=== PATIENT | female | born 1990 | race Caucasian/White ===

== ENCOUNTER 2016-11-21 01:11 | Observation (INO) | payer OTHER ==
[~2016-11-21] VITALS: Ht 167.6 cm; Wt 132.4 kg
[2016-11-21] MEDS ORDERED: Lactated Ringer's 1,000 ML IV SCH ×2 (07:32→20:18)
[2016-11-21] MEDS ORDERED: Ampicillin Inj 2,000 MG in 0.9% Sodium Chloride 100 ML IV ONE (08:00)
--- NOTE | 2016-11-21 08:22 | PCM.HPOB ---
Subjective Date of Service: Nov 21, 2016 Referring Provider: Admitting Physician: James Garcias MD Primary Care Physician: [facility] Attending Physician: James Garcias MD Chief Complaint Induction of labor at 37 w 2 days for gestational hypertension with new onset headaches History of Present History of Present Illness Patient is a 26 y.o. F EGA 37 wk 2 days, history of gestational hypertension, GBS positive. Patient presents with worsening elevation in blood pressure and headaches. Patient denies rupture of membranes, vaginal discharge, vaginal bleeding, patient states that she is currently not having cramps. OB History: (1), Para (0) Past Medical History Obstetrical History: GBS postiive ASHLY 12/10/16 h/o gestational HTN during this Gynecologic History: No history of STI Last pap 05/10/16 negative HPV, negative abnormal cells Medical History: Rupture left gastrocnemius tendon Dental abscess Surgical History: none Hx Tobacco Use: No Smoking Status: Never Smoker Hx Alcohol Use: No Hx Substance Use: No Past Family History Family History Mother and father alive and well Mother history of pernicious anemia Sister with RA Living Arrangement: with Family Genetic Screening/Counseling Genetic Screening/Counseling: Negative Review of Systems Constitutional: Y: Change of appitite, Chills Eyes: Denies: Blurred Vision, Conjunctive Inflammation ENT: Denies: Ear Pain, Tinnitus Cardiovascular: Denies: Chest Pain, Edema, Orthopnea, Palpitations, SOB while laying flat Respiratory: Denies: Cough, Pleuritic Chest Pain Gastrointestinal: Denies: Abdominal Pain, Nausea, Vomiting Genitourinary: Denies: Dysuria Musculoskeletal: Denies: Swelling Neurological: Denies: Change in Speech, Confusion, Dizziness Medications Home medications Benadryl Tylenol vitamins Allergy Coded Allergies: No Known Allergies (Unverified , 06/17/15) Exam Vital Signs HR 89 BP 120/78 Exam Tracing showed reassuring tracing HR 130 Positive accelerations No decelerations Objective Holt score 2 Constitutional: Well-developed, Obese HEENT: Atraumatic, PERRLA, EOMI Lungs: Clear to Auscultation, Normal Air Movement Heart: Exam Unremarkable, Regular Rate/Rhythm, Normal S1, Normal S2 Abdomen: Gravid, No tenderness Extremities: Pulses Palpable x4, Edema (mild) Neurological/Psychiatric: Alert, Oriented X3, Cooperative, No Acute Distress Neuro: Grossly Neurologically Intact Labs/Diagnostics Labs Genetic screening negative GBS positive Blood type O positive Ultra Sound US 10/27 EFW 80% US 11/17 Normal BPP Normal placental flow Normal amniotic fluid level Maternal Blood Type: O (+) Hx Rho(D) Immune Globulin: No Group B Strep Results: Positive Rubella: Immune OB Intrapartum Assessment/Plan Assessment Patient is a 26 y.o. F EGA 37 wk and 2 days, history of gestational hypertension. Presents for induction due to elevated blood pressure and headaches Problems: (1) Gestational hypertension Qualifiers: Trimester: third trimester Qualified Code: O13.3 - Gestational [- induced] hypertension without significant proteinuria, third trimester Plan: See below Induction of labor for concern of development of pre-eclampsia with new onset headaches Status: Acute ICD Code: O13.9 (2) labor with delivery Status: Acute ICD Code: O60.10X0 Pain Evaluation: Adequate Pain Control Intrapartum plan Start induction of labor 25 mg Cytotec Q4 hours with cervical checks Continue [place] GBS positive start PCN IV 5000 units once and 3,000 units Q4 IVF LR 100 mls/hr Order CBC, CMP, UA Urine dip negative for protein Post plan: Continue routine post care Attending Statement The patient was seen and examined together with Dr. Romero I agree with the history, exam and plan as outlined in the note above. Will start induction of labor for elevated blood pressure. BP stable currently. Will start cervical ripening protocol with cytotec. GBS prophylaxis when pitocin started cc: Imani Montes MD, AARON J DO Nov 21, 2016 08:22 Imani Montes MD Nov 23, 2016 16:21
[2016-11-21] MEDS ORDERED: Penicillin G K Inj 5,000,000 UNITS in Dextrose 5% Minibag Plus 100 ML IV ONE ×2 (08:45→23:15)
[2016-11-21 08:48] LABS: APPEARANCE,URINE HAZY (CLEAR,HAZY); COLOR,URINE DARK YELLOW (YELLOW); OCCULT BLOOD,URINE NEGATIVE (NEGATIVE); PH,URINE 6.5 (5.0-8.0)
[2016-11-21 08:49] LABS: UROBILINOGEN,URINE NORMAL (NORMAL)
[2016-11-21] MEDS ORDERED: Oxytocin 30 Units/500 mL LR 30 UNITS in IV Premix 1 EACH IV PRN (09:15)
[2016-11-21] MEDS ORDERED: Methylergonovine 0.2 mg/mL Inj IM PRN (09:15)
[2016-11-21] MEDS ORDERED: Hemorrhage Kit, Post Partum XX ONE (09:15)
[2016-11-21] MEDS ORDERED: Ondansetron 2 mg/mL 2 mL Inj IVPUSH PRN (09:15)
[2016-11-21] MEDS ORDERED: Oxytocin 10 Unit/mL Inj IM PRN (09:15)
[2016-11-21] MEDS ORDERED: Carboprost 250 mCg/mL Inj IM PRN (09:15)
[2016-11-21] MEDS ORDERED: Sodium Chloride LOK Flush 10 mL Syringe IVFLUSH PRN (09:15)
[2016-11-21] MEDS: Lactated Ringer's 1,000 ML IV PRN ×3 (09:27→23:24)
[2016-11-21] MEDS: Misoprostol 25 mCg/0.25 Tablet VAGINAL SCH ×2 (09:29→13:30)
[2016-11-21 09:49] LABS: BASOPHILS % (AUTO) 0.2 % (0-3); MONOCYTES % (AUTO) 4.3 % (4-12); Mean Corpuscular Hemoglobin 26.6 pg (27.0-35.0); Mean Corpuscular Volume 79.1 fL (81-100); NEUTROPHILS % (AUTO) 79.1 % (40-74); Platelet Count 276 bil/L (150-400)
[2016-11-21] MEDS ORDERED: Penicillin G K Inj 3,000,000 UNITS in IV Premix 1 EACH IV SCH (13:00)
[2016-11-22] MEDS: Lactated Ringer's 1,000 ML IV PRN (02:00)
[2016-11-22] MEDS: Penicillin G K Inj 3,000,000 UNITS in IV Premix 1 EACH IV SCH ×2 (03:39→07:30)
[2016-11-22] MEDS: Misoprostol 25 mCg/0.25 Tablet VAGINAL SCH (08:52)
[2016-11-22] MEDS ORDERED: Misoprostol 25 mCg/0.25 Tablet VAGINAL SCH (09:15)
--- NOTE | 2016-11-22 18:24 | PCM.DIOB ---
Obstetrical Disch Instruction Dates of Hospitalization Date of Hospital Admission Nov 21, 2016 at 06:53 Providers Admitting Physician: James Garcias MD Primary Care Physician: [facility] Attending Physician: James Garcias MD Discharge Diagnosis Discharge Diagnosis Induced hypertension intrauterine gestation 37 weeks 3 days Problems: (1) Gestational hypertension Qualifiers: Trimester: third trimester Qualified Code: O13.3 - Gestational [- induced] hypertension without significant proteinuria, third trimester Status: Acute ICD Code: O13.9 Diet Discharge Diet: Low fat, Low Sodium, Heart Healthy Activity Discharge Activity-General: Try not to overdue, Balance rest and activity, Activity as pain allows Additional Instructions Discharge Instructions [facility] as scheduled tomorrow 11/23/16 Return to [facility] [place] for blood pressure check and NST Rescheduled induction due to failure to progress for Next Monday11/29/16 labor precautions: If you experience rupture of membranes (water breaking), increasing contractions in close proximity 8-10 minutes proceed to family center If you experience vaginal bleeding, fever, chills, worsening nausea, vomiting, intractable worsening headaches, changes in vision, proceed to [facility] [place]. Follow Up Plan Follow Up Plan Follow up with [facility] as scheduled tomorrow 11/23/16 Return to [facility] [place] for blood pressure check and NST Rescheduled induction due to failure to progress for Next Monday11/29/16 Follow-up appointment: Days (1), Weeks (1 wek scheduled induction) Call your provider for: Fever or Chills, Shortness of breath, Heavy vaginal bleeding, Heavy bleeding, Epigastric pain, Excessive constipation, Vaginal discomfort LAYLA MIR DO Nov 22, 2016 18:24
--- NOTE | 2016-11-22 18:31 | PCM.DC.OB ---
Obstetrical Discharge Summary Date of Service Nov 22, 2016 Date of hospital admission Nov 21, 2016 at 06:53 Date of Discharge: Nov 22, 2016 Providers Admitting Physician: James Garcias MD Primary Care Physician: [facility] Attending Physician: James Garcias MD Diagnosis at Time of Discharge induced Hypertension Single intrauterine gestation 37 wk 3 days Problems: (1) Gestational hypertension Qualifiers: Trimester: third trimester Qualified Code: O13.3 - Gestational [- induced] hypertension without significant proteinuria, third trimester Status: Acute ICD Code: O13.9 Brief History and Physical: Patient is a 26 y.o. F EGA 37 wk 2 days, history of gestational hypertension, GBS positive. Patient presents with worsening elevation in blood pressure and headaches. Patient stated she is not sleeping well in hospital and has not had regular contractions, patient stated that she has had intermittent strong contractions every few hours follow by sporadic moderate contractions. At time of discharge patient denies rupture of membranes, vaginal discharge, vaginal bleeding, fever, chills, headache, worsening vision. Labs reviewed normal no prolinuria. Exam Constitutional: Well-developed, Obese HEENT: Atraumatic, PERRLA, EOMI Lungs: Clear to Auscultation, Normal Air Movement Heart: Exam Unremarkable, Regular Rate/Rhythm, Normal S1, Normal S2 Abdomen: Gravid, No tenderness Extremities: Pulses Palpable x4, Edema (mild) Neurological/Psychiatric: Alert, Oriented X3, Cooperative, No Acute Distress Neuro: Grossly Neurologically Intact Hospital Course: Patient is a 26 y.o. F EGA 37 wk 2 days, history of gestational hypertension, GBS positive. Patient presented 11/21/16 for scheduled induction for induced hypertension with symptoms of worsening elevation in blood pressure and headaches. patient present with closed cervix, 0 % effacement -3 station. Induction initiated with cytotec 25 mg Q 4hrs. Overnight induction medication changed to cervadil with inaccurate placement. Aproximately 0900 11/22/16 medication changed back to cytotec after two doses patient progress to 1 cm dilation and 70 % effacement, no change in station, no regular contractions. During hospitals stay BP in good range 120- 130 / 60 - 70. Decision made to discharge patient with labor precations, follow up 11/23/16 in office, Bp check and NST 8/24/17, and reschedule induction for . Repeat Ultrasound with EFW ordered. No Active Prescriptions or Reported Meds Disposition Discharge to home Follow-up plan Follow Up Plan [facility] as scheduled tomorrow 11/23/16 Return to [facility] for blood pressure check and NST Rescheduled induction due to failure to progress for Next Monday11/29/16 Follow-up appointment: Days (1), Weeks (1 wek scheduled induction) Call your provider for: Fever or Chills, Shortness of breath, Heavy vaginal bleeding, Heavy bleeding, Epigastric pain, Excessive constipation, Vaginal discomfort Discharge Diet: Low fat, Low Sodium, Heart Healthy Discharge Activity-General: Try not to overdue, Balance rest and activity LAYLA MIR DO Nov 22, 2016 18:31
== END 2016-11-22 18:41 | disposition home or self-care (01) ==
LOC: INTOOBSV 06:53 → FBC 06:53
PROVIDERS: ADMIT Obstetrics & Gynecology; ATTEND Obstetrics & Gynecology
DX: O13.3 Gestational [pregnancy-induced] hypertension without significant proteinuria, third trimester (principal); O61.0 Failed medical induction of labor; R51 Headache; Z3A.37 37 weeks gestation of pregnancy; O99.824 Streptococcus B carrier state complicating childbirth
CPT/HCPCS: 36415; 80053; 81000; 82570; 84156; 85025; 86850; 87086; 87088; 96365; G0463; J2540; J7120

== ENCOUNTER 2016-11-29 01:55 | Inpatient (IN) | payer OTHER ==
[~2016-11-29] VITALS: Ht 167.6 cm; Wt 133.0 kg
[2016-11-29] MEDS ORDERED: Oxytocin 10 Unit/mL Inj IM PRN (08:45)
[2016-11-29] MEDS ORDERED: Carboprost 250 mCg/mL Inj IM PRN (08:45)
[2016-11-29] MEDS ORDERED: Hemorrhage Kit, Post Partum XX ONE (08:45)
[2016-11-29] MEDS ORDERED: Methylergonovine 0.2 mg/mL Inj IM PRN (08:45)
[2016-11-29] MEDS ORDERED: Oxytocin 30 Units/500 mL LR 30 UNITS in IV Premix 1 EACH IV PRN (08:45)
[2016-11-29 09:01] LABS: Mean Corpuscular Hemoglobin 26.6 pg (27.0-35.0); Mean Corpuscular Volume 79.1 fL (81-100)
--- NOTE | 2016-11-29 09:04 | PCM.HPOB ---
Subjective Date of Service: Nov 29, 2016 Referring Provider: Admitting Physician: James Garcias MD Primary Care Physician: [facility] Attending Physician: James Garcias MD Chief Complaint induction of labor History of Present History of Present Illness Patient is a 26 y.o. F G1 PO EGA 38 weeks 4 days, ASHLY, history of gestational hypertension, GBS postitive. Patient scheduled for induction 11/29/16 for induced hypertension. patient denies rupture of membranes, vaginal discharge, vaginal bleeding OB History: (1), Para (0) Obstetrical Complications: Gestational Hypertension Past Medical History Obstetrical History: GBS postivie ASHLY 12/10/16 Gestational HTN Gynecologic History: No h/o STI Lsat pap 05/10/16 neg HPV, negative cervical cancer Medical History: Rupture gastrocnemius tendon Dental abscess Surgical History: none Hx Tobacco Use: No Hx Alcohol Use: No Hx Substance Use: No Past Family History Family History Mother and father alive and well mother history of pernicious anemia Sister with RA Genetic Screening/Counseling Genetic Screening/Counseling: Negative Review of Systems Constitutional: Y: Change of appitite, Chills, Dizziness, Fever Eyes: Denies: Blurred Vision, Conjunctive Inflammation, Pain, Vision Changes ENT: Denies: Ear Pain, Nasal Congestion, Nose Discharge Cardiovascular: Denies: Chest Pain, Edema Respiratory: Denies: Cough, Cough with bloody sputum, Pleuritic Chest Pain Gastrointestinal: Denies: Abdominal Pain, Epigastric pain, Nausea, Vomiting Genitourinary: Denies: Change in Frequency, Dysuria, Hematuria, Incontinence Musculoskeletal: Denies: Redness Skin: Denies: Bruising, Jaundice, Rash Neurological: Denies: Change in Speech, Confusion, Dizziness Psychologic: Denies: Agitation, Anxious, Apprehensive, Depression Medications Home medications Benadryl Tylenol vitamins Allergy Coded Allergies: No Known Allergies (Unverified , 06/17/15) Exam Constitutional: Well-developed, Well-nourished, Obese HEENT: Atraumatic, PERRLA, EOMI Lungs: Clear to Auscultation, Clear to Percussion Heart: Regular Rate/Rhythm, Normal S1, Normal S2, No Murmurs/Rubs/Gallops Abdomen: Gravid (fundal height consistent with gestational age), Normal bowel sounds, No tenderness Extremities: Pulses Palpable x4, No Edema Neurological/Psychiatric: Alert, Oriented X3, Cooperative Neuro: Grossly Neurologically Intact Labs/Diagnostics Labs Genetic screening negative GBS postive Blood Type O Ultra Sound 11/17 Normal BPP Normal placental flow normal REMIGIO Maternal Blood Type: O Hx Rho(D) Immune Globulin: No Group B Strep Results: Positive Previous Infant with GBS: No Rubella: Immune Additional Information vaccinations up to date OB Intrapartum Assessment/Plan Assessment Patient is a 26 y.o. F EGA 38 wk 4 days. Admitted for induction of labor at 38 wk for PIH. V/s Pain Evaluation: Adequate Pain Control Intrapartum plan Admit to [facility] Order US to confirm position Once confirm vertex position start cervical ripening protocol with cytotec Start Tocometry IVF LR 125 mls/hr Tylenol for pain GBS positive start PCN IV 5000 units once and 3,000 units Q4 once pitocin started Order CBC, CMP, UA Attending Statement Patient seen and examined. Initially received cytotec at admission, currently cervix is 1/thick/high/soft. Vertex by bedside ultrasound. Spivey balloon placed at bedside for cervical ripening will start pitocin at 2mu and hold until balloon is out, then pitocin per protocol. PCN when in active labor. BP stable at this time 120-130's/70-80s LAYLA MIR DO Nov 29, 2016 09:04 Imani Montes MD Nov 29, 2016 16:17
[2016-11-29] MEDS: Misoprostol 25 mCg/0.25 Tablet VAGINAL SCH ×3 (10:05→17:45)
[2016-11-29] MEDS: Lactated Ringer's 1,000 ML IV PRN (16:34)
--- NOTE | 2016-11-29 16:59 | DRSVH ---
PROCEDURE: US OB AMNIOTIC FLUID INDEX/ POSITION LIMITED INDICATIONS: presentation OUTSIDE/PRIOR DATING DATA: Last menstrual period (LMP): 03/05/16. LMP-based estimated date of delivery (ASHLY): 12/10/16. First dating scan (date and location): 05/03/16. Estimated date of delivery (ASHLY) from first dating scan: 12/13/16. TECHNIQUE: Real-time scanning was performed of the fetus, with image documentation and biometric measurements. COMPARISON: [facility] Ultrasound, US, US OB FU GROWTH+BPP+UMB DOP, 11/24/2016, 11:08. FINDINGS: General: A single living intrauterine gestation is present. Presentation: Vertex Placenta: Placental position is anterior, without previa. OB-ALLERGY PHYSICIAN Ultrasound Procedure Report Summary Fetus Summary Est. Gest. Age by first dating scan(or LMP,if no prior): 38 weeks 0 days. Findings(Amniotic Sac) Amniotic Fluid Index (REMIGIO): 10.52 cm Pelvis and Uterus Cervix Length: Not well seen. IMPRESSION: 1. Single living intrauterine gestation redemonstrated in vertex presentation. No additional imaging of the fetus was performed. Dictated by: Luis Turcios RRA Interpreted: Elin Sheldon MD on 11/29/2016 at 10:21 Approved by: Elin Sheldon M.D. on 11/29/2016 at 16:57
[2016-11-30] MEDS: Lactated Ringer's 1,000 ML IV PRN (00:44)
[2016-11-30] MEDS: Oxytocin 30 Units/500 mL LR 30 UNITS in IV Premix 1 EACH IV PRN (05:21)
--- NOTE | 2016-11-30 07:07 | PCM.PNOBIP ---
Subjective Date of Service Nov 30, 2016 Visit History Patient is a 26 y.o. F G1 PO EGA 38 weeks 4 days, ASHLY, history of gestational hypertension, GBS postitive. Patient scheduled for induction 11/29/16 for induced hypertension. patient denies rupture of membranes, vaginal discharge, vaginal bleeding. Subjective Patient noted today that her mucus plug fell out last night when the cervical dilation balloon popped. Patient denies vaginal bleeding, rupture of membranes, fever, chills, vision changes. She noted nausea, vomiting x 1, headaches. Pain Management: PO pain meds Activity: Ambulating Independently Labs Labs Genetic screening negative GBS postive Blood Type O Ultra Sound 11/17 Normal BPP Normal placental flow normal REMIGIO Group B Strep Results: Positive Rubella: Immune Blood Type: O Labs Laboratory Tests 11/29/16 07:55: White Blood Count 10.9, Red Blood Count 4.88, Hemoglobin 13.0, Hematocrit 38.6, Mean Corpuscular Volume 79.1, Mean Corpuscular Hemoglobin 26.6, Mean Corpuscular Hemoglobin Concent 33.7, Red Cell Distribution Width 14.7, Platelet Count 268, Hematology Comments Exam Vital Signs Vital Signs Contraction frequency in minutes: MVUs: Heart Tracings Heart Tones Baseline bpm Tocometry/IUPC Contraction frequency in minutes: MVUs: Sterile Vaginal Exam Cervical Dilation: 1 cm Cervical Effacement: 30 % Station: -3 Exam Abdomen: Uterus is (gravid) Lungs: Clear to Auscultation, Clear to Percussion Heart: Regular Rate/Rhythm, Normal S1, Normal S2, No Murmurs/Rubs/Gallops General: Alert, Oriented X3, Cooperative OB Intrapartum Assessment/Plan Assessment Patient is a 26 y.o. F G1 PO EGA 38 weeks 4 days, ASHLY, history of gestational hypertension, GBS postitive. Admitted for induction of labor due to PIH . BP stable at this time 120-130's/70-80s, labs stable Plan US confirmed vertex position Continue ripening with cervical balloon and cytotec per per protocol, pitocin at 2mu and hold until balloon is out, then pitocin per protocol ContinueTocometry IVF LR 125 mls/hr Tylenol for pain GBS positive start PCN IV 5000 units once and 3,000 units Q4 once pitocin started Pain Evaluation: Adequate Pain Control Attending Statement Patient seen and examined. She is making slow cervical change. Overnight her temple balloon ruptured and she continues to be 1.5cm dilated. Soft, more effaced. Currently her gómez score is 5-6 which is a significant improvement from yesterday at admission her gómez score was 2. Options were reviewed today including proceeding with a primary section, continued induction with cervical ripening versus AROM and pitocin. After discussing risks/ benefits and alternatives of all of the options at this time she would like to proceed with a dose of cervidil with AROM and pitocin in the morning if no change. BP have been 120's-130's systolic throughout today. LAYLA MIR DO Nov 30, 2016 07:07 Imani Montes MD Nov 30, 2016 18:06
[2016-11-30] MEDS: Sodium Chloride LOK Flush 10 mL Syringe IVFLUSH PRN ×2 (07:23→16:18)
[2016-11-30] MEDS ORDERED: Misoprostol 25 mCg/0.25 Tablet VAGINAL ONE (08:30)
[2016-11-30] MEDS: Misoprostol 25 mCg/0.25 Tablet VAGINAL SCH ×3 (12:23→20:35)
[2016-11-30] MEDS ORDERED: Penicillin G K Inj 5,000,000 UNITS in Dextrose 5% Minibag Plus 100 ML IV SCH (21:20)
[2016-12-01] MEDS: Misoprostol 25 mCg/0.25 Tablet VAGINAL SCH ×6 (00:35→20:35)
[2016-12-01] MEDS ORDERED: Penicillin G K Inj 5,000,000 UNITS in Dextrose 5% Minibag Plus 100 ML IV SCH (00:45)
[2016-12-01] MEDS ORDERED: Oxytocin 30 Units/500 mL LR 30 UNITS in IV Premix 1 EACH IV PRN ×2 (07:15→21:55)
--- NOTE | 2016-12-01 07:15 | PCM.PNOBIP ---
Subjective Date of Service Dec 01, 2016 Subjective Doing well this AM. Toelrated cervidil overnight until it fell out at 3 AM. Last night we had a long discussion regarding management options, she was offered continued induction, proceeding with primary low transverse section, versus AROM and pitocin. After discussing with her partner and family she opted to proceed with cervidil overnight and then AROM this AM with pitocin. Pain Management: PO pain meds Activity: Ambulating Independently Group B Strep Results: Positive Rubella: Immune Blood Type: O Labs Laboratory Tests 11/29/16 07:55: White Blood Count 10.9, Red Blood Count 4.88, Hemoglobin 13.0, Hematocrit 38.6, Mean Corpuscular Volume 79.1, Mean Corpuscular Hemoglobin 26.6, Mean Corpuscular Hemoglobin Concent 33.7, Red Cell Distribution Width 14.7, Platelet Count 268, Hematology Comments Exam Vital Signs Vital Signs Contraction frequency in minutes: MVUs: Heart Tracings Heart Tones Baseline heart tones category 1 bpm Tocometry/IUPC Contraction frequency in minutes: MVUs: Sterile Vaginal Exam AROM performed at bedside, attempted IUPC placement- patient did not tolerate Cervical Dilation: 1 cm Cervical Effacement: 60 % Station: -3 Exam Abdomen: Uterus is (gravid) General: Alert, Oriented X3, Cooperative OB Intrapartum Assessment/Plan Assessment 26 yo female here for IOL for gestational hypertension. BP are stable 120-140' s systolic/ 70-80's diastolic. - IOL: status post temple balloon, cytotec, cervidil- Holt score 6, - AROM completed with pitocin started per protocol - PCN for GBS + status ordered - Epidural when desired Pain Evaluation: Adequate Pain Control Intrapartum Antibiotics: Imani Valiente MD Dec 01, 2016 07:15
[2016-12-01] MEDS: Oxytocin 30 Units/500 mL LR 30 UNITS in IV Premix 1 EACH IV PRN (07:37)
[2016-12-01] MEDS: Lactated Ringer's 1,000 ML IV PRN ×3 (07:38→13:47)
[2016-12-01] MEDS ORDERED: fentaNYL-PF 50 mCg/mL 2 mL Inj ONE ×2 (11:12→19:49)
[2016-12-01] MEDS ORDERED: fentaNYL-PF 50 mCg/mL 2 mL Inj IVPUSH ONE (11:20)
[2016-12-01] MEDS: Penicillin G K Inj 3,000,000 UNITS in IV Premix 1 EACH IV SCH ×4 (11:27→22:30)
[2016-12-01] MEDS ORDERED: fentaNYL 2 mCg/mL-Bupivicaine 0.125% 100 mL Premix EPIDURAL ONE (12:42)
[2016-12-01] MEDS ORDERED: Lactated Ringer's 500 ML IV ONE (13:43)
[2016-12-01] MEDS ORDERED: fentaNYL 2 mCg/mL-Bupiv 0.125% 100 ML EPIDURAL SCH (13:45)
[2016-12-01] MEDS ORDERED: EPHEDrine Sulfate 50 mg/mL Inj IVPUSH PRN (13:45)
[2016-12-01] MEDS ORDERED: Atropine 1 mg/10 mL (Code) Syringe IVPUSH PRN (13:45)
[2016-12-01] MEDS ORDERED: Ondansetron 2 mg/mL 2 mL Inj IVPUSH PRN (13:45)
--- NOTE | 2016-12-01 13:46 | PCM.HPANE ---
Patient Data Date of Service: Dec 01, 2016 Surgeon Admitting Provider:James Garcias MD Attending Provider:James Garcias MD Primary Care Physician:[facility] Other Provider:Vadim Maynard Anesthesia Reason for Visit Induction INDUCTION Ht/WT & BMI Body Mass Index Allergies Coded Allergies: No Known Allergies (Unverified , 06/17/15) Past Anesthesia History Anesthesia History: Denies:: Abnormal Airway, Anesthesia Reactions, Difficult Intubation, Fam Anesthesia Reaction, Fam Malignant Hypertherm, Malignant Hyperthermia Diabetes History Hx Diabetes?: No Medications Hypertension Medication: No Home Meds Incl Beta Daniel: No No Active Prescriptions or Reported Meds History History of ENT Problems?: No HEENT History: Denies:: Abnormal Airway Cataracts Difficult Intubation Dysphagia Glaucoma Hearing Problem Sinus Problem TMJ Denture Type: None Teeth Condition: Within Normal Limits Hx of Heart Problems?: No Cardiovascular History: Denies:: AICD Abdominal Aortic Aneurism Atrial Fibrillation Cardiac Surgery Chest Pain Congestive Heart Failure Coronary Artery Disease Edema Heart Murmur Hypertension Irregular Heartbeat Pacemaker Peripheral Vascular Rheumatic Fever Thrombophlebitis Valvular Heart Disease Hx of Respiratory Problem?: No Respiratory History: Denies:: Asthma COPD Chest Surgery Cough Dyspnea Emphysema Hemoptysis Oxygen Administration Pneumonia Pulmonary Embolism Tuberculosis Use of C-PAP Machine Use of Inhalers / NEBS Hx Neurologic Problems?: No Neurological History: Denies:: Alzheimer's Disease CVA Dementia Dizziness Headaches Multiple Sclerosis Parkinson's Disease Peripheral Neuropathy Seizures TIA Hx of GI Problems?: No Gastrointestinal History: Denies:: Cirrhosis Diverticulitis Gall Bladder Disease Gastroesphageal Reflux Gastrointestinal Bleeding Heartburn Hepatitis Hiatal Hernia Liver Disease Rectal Bleeding Hx of Problems?: No Genitourinary History: Denies:: HX of Hemodialysis Kidney Stones Urinary Tract Infection Hx Musculoskeletal Problems?: No Musculoskeletal History: Denies:: Back Injury Degenerative Joint Fibromyalgia Joint Replacement Musculoskeletal Trauma Myasthenia Gravis Osteoarthritis Rheumatoid Arthritis Systemic Lupus Hx Surgeries?: No Hx Alcohol Use: NoHx Substance Use: No Smoking Status: Never Smoker Stop/Bang Risk Assessment Category Category 1A: Patient has history of documented sleep apnea, and HAS NOT received any narcotic, sedative or anesthesia administration during this stay. Category 1B: Patient has history of documented sleep apnea, and HAS received any narcotic , sedative or anesthesia administration during this stay Category 2: Patient has SUSPECTED Obstructive Sleep Apnea, and HAS received any narcotic , sedative or anesthesia administration during this stay. Category 3: Patient has SUSPECTED Obstructive Sleep Apnea and HAS NOT received narcotic, sedative or anesthesia administration during this stay. Category 4: Outpatient in Procedural Areas with known sleep apnea or who screen positive for High Risk via the STOP/BANG questionnaire. Exam Exam General Appearance: Alert, Oriented X3, Cooperative HEENT/AIRWAY: MP 2 Lungs: Clear to Auscultation, Normal Air Movement Heart: Exam Unremarkable, Regular Rate/Rhythm, No Murmurs/Rubs/Gallops Meds/Labs/Diagnostics Admission Meds Current Medications Dinoprostone 10 mg 10 mg ONCE ONCE VAGINAL Last administered on 11/30/16 18: 25; Start 11/30/16 at 17:45; Stop 11/30/16 at 17:48; Status DC Penicillin G Potassium/ Dextrose/Premix (Pfizerpen Inj/ IV Premix) 50 ml @ 100 mls/hr Q4H IV Last administered on 12/01/16 11:27; Start 12/01/16 at 10:30 Fentanyl Citrate (Sublimaze Inj) 50 mcg ONCE ONCE IVPUSH Last administered on 12/01/16 11:22; Start 12/01/16 at 11:20; Stop 12/01/16 at 11:21; Status DC Labs Test 11/29/16 07:55 11/29/16 08:05 White Blood Count 10.9th/mm3 (3.8-10.1) Red Blood Count 4.88mil/mm3 (3.90-5.20) Hemoglobin 13.0g/dL (12.0-15.6) Hematocrit 38.6% (35.0-46.0) Mean Corpuscular Volume 79.1fL (81-100) Mean Corpuscular Hemoglobin 26.6pg (27.0-35.0) Mean Corpuscular Hemoglobin Concent 33.7% (32.0-37.0) Red Cell Distribution Width 14.7% (12.3-15.4) Platelet Count 268bil/L (150-400) Hematology Comments Urine Random Creatinine 71mg/dL (16-392) Urine Random Total Protein 7mg/dL (0-15) Urine Protein/Creatinine Ratio 0.10 (0-200) Blood Urea Nitrogen 7mg/dL (6-20) Creatinine 0.57mg/dL (0.57-1.00) Uric Acid 5.2mg/dL (2.6-7.2) Aspartate Amino Transf (AST/SGOT) 20U/L (0-50) Alanine Aminotransferase (ALT/SGPT) 17U/L (0-32) Hold Urine Received (Received) Plan Impression Patient chart reviewed, patient interviewed and anesthestic plan with risks, benefits, and alternatives discussed, and informed consent obtained. ASA Physical Status: ASA2 Mod Systemic Disease Anesthetic Plan: Epidural Bene/Risks/Altern/Consents: Yes HP Complete Prior to Induction: Yes Juan Jessica MD Dec 01, 2016 13:46
[2016-12-01] MEDS: Lactated Ringer's 1,000 ML IV SCH ×2 (16:11→21:52)
[2016-12-01] MEDS ORDERED: Sodium Citrate-Citric Acid 15 mL Solution ONE (19:06)
[2016-12-01] MEDS ORDERED: Methylergonovine 0.2 mg/mL Inj IM PRN ×2 (19:10→21:55)
[2016-12-01] MEDS ORDERED: Carboprost 250 mCg/mL Inj IM PRN ×2 (19:10→21:55)
[2016-12-01] MEDS ORDERED: Oxytocin 10 Unit/mL Inj IM PRN ×2 (19:10→21:55)
[2016-12-01] MEDS ORDERED: Sodium Citrate-Citric Acid 15 mL Solution PO SCH (19:10)
[2016-12-01] MEDS ORDERED: Lactated Ringer's 1,000 ML IV SCH (19:10)
[2016-12-01] MEDS ORDERED: Hemorrhage Kit, Post Partum XX ONE ×2 (19:10→21:55)
[2016-12-01] MEDS ORDERED: CeFAZolin Inj 3 GM in IV Premix 1 EACH IV ONE (19:20)
[2016-12-01] MEDS ORDERED: Morphine PF 1 mg/mL 10 mL Inj ONE (19:49)
[2016-12-01] MEDS ORDERED: Ketamine 10 mg/mL 20 mL Inj ONE (19:50)
[2016-12-01] MEDS ORDERED: Dexamethasone 4 mg/mL Inj IVPUSH PRN (21:00)
[2016-12-01] MEDS ORDERED: fentaNYL-PF 50 mCg/mL 2 mL Inj IVPUSH PRN (21:00)
[2016-12-01] MEDS ORDERED: MetoCLOpramide 5 mg/mL 2 mL Inj IVPUSH PRN (21:00)
--- NOTE | 2016-12-01 21:54 | PCM.ANEP1 ---
Post Anesthesia PACU Phase 1 Assessment Anesthetic Administered: Epidural Level of Alertness: Awake, talking CORDOVA's with Equal Strength: No Pain: No Pain Scale Score: 0 Nausea or Vomiting: No CV Function & Hydration Stable: No Airway Device: Oxygen Delivery: Room Air Lungs: Clear to Auscultation, Normal Air Movement Dermatome Level: T12 (Symphysis Pubis) PACU Phase 2 Assessment Complications: No Follow up Care: No Patient Instructions Provided: Yes Juan Jessica MD Dec 01, 2016 21:54
[2016-12-01] MEDS ORDERED: Acetaminophen IV 1,000 MG in IV Premix 1 EACH IV PRN (21:55)
[2016-12-01] MEDS ORDERED: Sodium Chloride LOK Flush 10 mL Syringe IVFLUSH PRN (21:55)
[2016-12-01] MEDS ORDERED: LANOlin HPA 7 Gm Ointment TOPICAL PRN (21:55)
[2016-12-01] MEDS ORDERED: DEXTROSE 5% IV ONE (23:05)
[2016-12-01] MEDS ORDERED: GENTAMICIN IV ONE (23:05)
[2016-12-01] MEDS: diphenhydrAMINE 50 mg Capsule PO PRN (23:08)
--- NOTE | 2016-12-01 23:28 | OP ---
[address] [address] OPERATIVE REPORT PATIENT: ALEXSANDRA HERNANDES : 1990 MR#: [id number] ADMIT: 11/29/2016 JOB ID: [id number] DATE OF SURGERY: 12/01/2016 PREOPERATIVE DIAGNOSIS(ES): 1. A 26-year-old, 1, para 0, at 38 weeks and 5 days gestational age admitted by Dr. Montes for induction of labor secondary to gestational hypertension. Had been induced for three days, progressed to fully dilated and started pushing. Arrest of descent at -3 station continued for 2 hours in spite of adequate pushing and adequate uterine contractions. 2. Category 2 heart tracing with repetitive variable decelerations was observed. Baseline of 145 beats per minute, positive accelerations with moderate variability. Repetitive variable decels . A nicholas of 80 beats per minute, back to the baseline. When pushing stopped and the Pitocin stopped, category 1 tracing was restored. Patient consented to proceed with a primary section. POSTOPERATIVE DIAGNOSIS(ES): 1. A 26-year-old, 1, para 0, at 38 weeks and 5 days gestational age admitted by Dr. Montes for induction of labor secondary to gestational hypertension. Had been induced for three days, progressed to fully dilated and started pushing. Arrest of descent at -3 station continued for 2 hours in spite of adequate pushing and adequate uterine contractions. 2. Category 2 heart tracing with repetitive variable decelerations was observed. Baseline of 145 beats per minute, positive accelerations with moderate variability. Repetitive variable decels . A nicholas of 80 beats per minute, back to the baseline. When pushing stopped and the Pitocin stopped, category 1 tracing was restored. Patient consented to proceed with a primary section. SURGEON: Shilpa Richardson M.D. GROUNDS AND NURSERY SPECIALIST: Kuldip Lu MD PROCEDURE: Primary low transverse section. INTRAVENOUS FLUIDS: 800 cc of crystalloid. ESTIMATED BLOOD LOSS: 600 cc. COMPLICATIONS: None. PACKS: None. DRAINS: None. CATHETERS: Spivey catheter in place. ANESTHESIA: Epidural. SPECIMEN: Removed placenta and sent to Pathology for gestational hypertension. OPERATIVE FINDINGS: 1. Normal fallopian tubes and ovaries bilaterally. 2. Right occiput transverse position with kaput succedaneum. 3. Single viable female infant, Apgars of 10/10 and weight of 3934 g. PROCEDURE IN DETAIL: Risks, benefits and alternatives were discussed with the patient. Informed consent was signed. Patient moved to the OR with IV running. After epidural anesthesia was found to be adequate, the patient was placed in dorsal supine position with a leftward tilt, prepped and draped in normal sterile fashion. inserted to retract the abdominal pannus and skin incision was made with a scalpel 2 cm above the symphysis pubis and carried down to the rectus fascia with the scalpel. Fascial incision extended bilaterally with Arrington scissors. Inferior aspect of fascial incision grasped with Ace clamps. It was tented up and rectus muscles dissected off bluntly. Attention was then turned to the superior aspect of the fascial incision, which in a similar fashion, was grasped with Ace clamps, tented up and rectus muscles dissected off bluntly. Rectus muscles were then in the midline. Peritoneum identified, entered bluntly with traction counter-traction. Upon good visualization of the bladder, the peritoneal incision extended superiorly and inferiorly. The Moebius retractor was inserted in the abdomen and bladder blade inserted. The vesicouterine peritoneum identified, entered sharply with the Metzenbaum scissors. Bladder flap created digitally. Bladder blade reinserted. Uterus incised in midline with scalpel. Uterine incision extended bilaterally with bandage scissors. The had delivered in right occiput transverse position with kaput succedaneum. Delayed cord clamping allowed for 60 seconds. Infant handed off to waiting scouring train operator after cord clamped and cut. Placenta expressed manually. Uterus exteriorized and cleared of all clots and debris. The uterine incision repaired with two layers, 1st of locked fashion of 0-Vicryl suture, 2nd layer of imbrication with 0-Vicryl suture. Extra [id number] of 2-0 chromic were taken to assure hemostasis at the level of hysterotomy repair. Suction irrigation confirmed hemostasis. Uterus returned back to the abdomen after observing normal fallopian tubes and ovaries bilaterally. All instruments removed from the patient's abdomen. Muscles approximated in the midline with interrupted sutures of 2-0 chromic. The fascia closed in a continuous fashion of 0-Vicryl suture. Subcutaneous layer closed in interrupted sutures of 2-0 chromic. Skin closed with yaritza. Pressure dressing applied. Patient tolerated the procedure well. Sponge, lap, needle, instrument counts correct x2. The patient went to Recovery in stable condition. Dr. Richardson was present and scrubbed for the entire procedure.
[2016-12-02] MEDS: Misoprostol 25 mCg/0.25 Tablet VAGINAL SCH ×7 (00:35→22:24)
[2016-12-02] MEDS: Clindamycin 900 mg/50 mL D5W IV SCH ×5 (01:07→22:25)
[2016-12-02] MEDS: Lactated Ringer's 1,000 ML IV SCH ×7 (01:08→22:24)
[2016-12-02] MEDS: Penicillin G K Inj 3,000,000 UNITS in IV Premix 1 EACH IV SCH ×8 (02:30→22:25)
[2016-12-02] MEDS: diphenhydrAMINE 50 mg Capsule PO PRN (03:25)
[2016-12-02 06:08] LABS: Mean Corpuscular Hemoglobin 26.5 pg (27.0-35.0); Mean Corpuscular Volume 80.6 fL (81-100)
[2016-12-02] MEDS: Ascorbic Acid 500 mg Tablet PO SCH (08:27)
--- NOTE | 2016-12-02 08:38 | PCM.PNOBPP ---
Subjective Date of Service Dec 02, 2016 Post : Primary Ceserean Delivery Visit History Patient is a 26 y.o. F G1 PO EGA 38 weeks 4 days, ASHLY, history of gestational hypertension, GBS postitive. Patient scheduled for induction 11/29/16 for induced hypertension, slow progression over first day of admission minimal change 1.5 cm 70% effacement. Decision made to start cervidil overnight. 11/30/16 Toelrated cervidil overnight until it fell out at 3 AM. Night of 11/30/16 we had a long discussion regarding management options, she was offered continued induction, proceeding with primary low transverse section, versus AROM and pitocin. After discussing with her partner and family she opted to proceed with cervidil overnight and then AROM 8 AM with pitocin. Patient progressed to full dialtion with 80% effacement station -3 at 1700 12/01/16. Patient did trial of pushing with minimal price changer the next three hours, with arrest of labor at -3 station, with category 2 FH tracing. Pitocin stopped and decision made to deliver via primary cesarians section delivered living female 10/10 weight 3934. No complications noted post delivery. Placenta sent for pathology for PIH. Subjective Today patient is doing well, pain uncontrol with hydrocodone and ibuprofen, light lochia, incision healing, passing gas. Pain Management: PO pain meds Postop Activity: Ambulating Independently Labs Labs Genetic screening negative GBS postive Blood Type O Ultra Sound 11/17 Normal BPP Normal placental flow normal REMIGIO Maternal Blood Type: O Hx Rho(D) Immune Globulin: No Group B Strep Results: Positive Previous Infant with GBS: No Rubella: Immune Group B Strep Results: Positive Rubella: Immune Blood Type: O RH Type: Positive Labs Laboratory Tests 11/29/16 07:55: Hematology Comments 12/02/16 05:45: White Blood Count 17.7, Red Blood Count 3.81, Hemoglobin 10.1, Hematocrit 30.7, Mean Corpuscular Volume 80.6, Mean Corpuscular Hemoglobin 26.5, Mean Corpuscular Hemoglobin Concent 32.9, Red Cell Distribution Width 14.5, Platelet Count 254 Exam Vital Signs Vital Signs: VS reviewed, stable Exam Abdomen: Uterus is, Fundus firm Perineum: Intact : Voiding without difficulty Extremities: No cords, Normal pulses Lungs: Clear to Auscultation, Normal Air Movement Heart: Regular Rate/Rhythm, Normal S1 General: Alert, Oriented X3 Surgical Wound : Incision General Appearence: Wound under dressing Dressing & Drainage Status: No Odor, Foul Odor Noted OB Post Assessment/Plan Pain Evaluation: Adequate Pain Control Post plan: Continue routine post care Plan: Hydrocodone 5-325 Q6 for pain Ibuprofen 600 mg Q6 for pain LAYLA MIR DO Dec 02, 2016 08:38
[2016-12-02] MEDS: oxyCODONE-Acetamin 5-325 mg Tablet PO PRN ×2 (15:00→20:43)
[2016-12-03] MEDS: oxyCODONE-Acetamin 5-325 mg Tablet PO PRN ×2 (03:00→08:40)
[2016-12-03] MEDS: Ascorbic Acid 500 mg Tablet PO SCH (08:40)
--- NOTE | 2016-12-03 10:11 | PCM.DIOB ---
Obstetrical Disch Instruction Date of Service: Dec 03, 2016 Dates of Hospitalization Date of Hospital Admission Nov 29, 2016 at 07:01 Providers Admitting Physician: James Garcias MD Primary Care Physician: Marcial Gr-Deny Waller Attending Physician: James Garcias MD Discharge Diagnosis Discharge Diagnosis Primary c/section for fail to descent POD2 preeclampsia without severe feature. Post Operative diagnosis Primary c/section for fail to descent POD2 preeclampsia without severe feature. Problems: Diet Discharge Diet: No restrictions Activity Discharge Activity-General: Pelvic Rest for 6 weeks, Try not to overdue, Be up and about, Balance rest and activity, Activity as pain allows, No lifting >15 pounds for 2 weeks Dressing and Incisional Care Dressing Care: Other (follow up in 2 days for yaritza removal) Hygiene: May shower, NO bathtub, hot tub or whirlpool Additional Instructions Discharge Instructions come back in 2 days for yaritza removal Please call office or go to ER if heavy vaginal bleeding, severe abdominal pain , fever more than 100,4, short of breath, or severe headache, blurry vision or floatus before your eyes. Follow Up Plan Follow Up Plan 2 and 6 weeks after delivery in office follow up in 2 days at [facility] for yaritza removal Follow-up appointment: Weeks (2 and 6 weeks) Call your provider for: Fever or Chills, Heavy vaginal bleeding, Heavy bleeding , Epigastric pain, Excessive constipation, Vaginal discomfort, Red painful breasts Tasneem Lancaster MD Dec 03, 2016 10:11
[2016-12-03] MEDS ORDERED: OXYC1TAB24 PO (10:13)
[2016-12-03] MEDS ORDERED: IBUP-1827 PO (10:13)
[2016-12-03] MEDS ORDERED: DOCU-41 PO (10:13)
[2016-12-03] MEDS ORDERED: FERR-74 PO (10:13)
--- NOTE | 2016-12-03 10:22 | PCM.DC.OB ---
Obstetrical Discharge Summary Date of Service Dec 03, 2016 Date of hospital admission Nov 29, 2016 at 07:01 Date of Discharge: Dec 03, 2016 Providers Admitting Physician: James Garcias MD Primary Care Physician: [facility] Simón-Felix Deny Bowles Attending Physician: James Garcias MD Diagnosis at Time of Discharge Primary c/section for fail to descent POD2 preeclampsia without severe feature. Problems: Brief History and Physical: Patient is a 26 y.o. F G1 PO EGA 38 weeks 4 days, ASHLY, history of gestational hypertension, GBS postitive. Patient scheduled for induction 11/29/16 for induced hypertension. patient denies rupture of membranes, vaginal discharge, vaginal bleeding Hospital Course: Admitted for IOL for preeclampsia without severe feature. Primacy c/section for fail to descent. Recovered well after delivery. BP in normal range. No s/s of preeclampsia Plan to discharge Docusate Sodium (Colace) 100 Mg Capsule 100 MG PO BID Prescribed by: TASNEEM ABDI MD Ferrous Sulfate (Feosol) 325 Mg Tablet 325 MG PO BIDWM Prescribed by: TASNEEM ABDI MD Ibuprofen (Ibuprofen) 600 Mg Tablet 600 MG PO QID PRN PRN For Pain Prescribed by: TASNEEM ABDI MD oxyCODONE-Acetaminophen 5-325 mg (oxyCODONE-Acetaminophen 5-325 mg) 1 Each Tablet 1-2 TAB PO Q8H PRN PRN For Pain Prescribed by: TASNEEM ABDI MD Discharge Medications: ferrous sulfate 325mg bid colace 100g bid prn motrin 600mg qid prn percocet 1-2 pills tid prn Disposition home Follow-up plan 2 and 6 weeks after delivery Discharge Diet: No restrictions Discharge Activity-General: Pelvic Rest for 6 weeks, Try not to overdue, Be up and about, Balance rest and activity Patient instructions Call office or go to ER if heavy vaginal bleeding, severe abdominal pain, foul smelling discharge, fever more than 100.4 or short of breath, or severe headache , blurry vision, epigastric pain. Tasneem Abdi MD Dec 03, 2016 10:22
[2016-12-03 11:20] VITALS: BP 110/70; PULSE 100; RESP 20
--- NOTE | 2016-12-12 15:04 | PATH ---
SURGICAL PATHOLOGY Attending Physician:James Garcias, CASE STATUS: Signed Out PATIENT NAME: ALEXSANDRA HERNANDES PID: [id number] : 1990 DATE COLLECTED:12/01/2016 00:00 SPECIMEN: Placenta CLINICAL HISTORY: 1). PLACENTA FOR HYPERTENSION FINAL DIAGNOSIS: Placenta, Delivery: membranes with deciduitis. Three vessel umbilical cord negative for funisitis. Placental disc (533 grams) with chorionic villi appropriate for gestational age. Features of decidual vasculopathy not identified. ICD10: Z38.01 GROSS DESCRIPTION: The specimen is received in formalin, labeled with the patient's name, and consists of an intact placenta which includes the placental disc (533 g, 20.5 x 16.5 x 2.9 cm), membranes and umbilical cord (length-19.2 cm, diameter-1.4 x 1.2 cm). The membranes are ruptured 4.0 cm from the free edge of the placenta and are thin and translucent. The umbilical cord is attached 6.8 cm from the edge of the placenta and contains 3 vessels. The surface is smooth and shiny with no evidence of meconium identified. The maternal surface is dark maroon with normal cotyledon formation. The placental body is spongy with no nodules, masses, lesions, hematomas or infarcts identified. Section code: (A) edge of placenta with membranes, umbilical cord; (B-G) placenta, 3 bisected full-thickness sections. 12/07/16 ICD-9 CODES: CPT CODES: 1: 00516 Electronically Signed Out Antwon Hooper MD, Ph.D. [facility] Pathology [facility] [address], [place] [address] Technical component performed at [facility], [address] [place] [address] Ave[address], [place], [address]
== END 2016-12-03 12:11 | disposition home or self-care (01) | DRG 766 ==
LOC: FBC 07:01
PROVIDERS: ADMIT Obstetrics & Gynecology; ATTEND Obstetrics & Gynecology
PROC: 10H07YZ Insertion of Other Device into Products of Conception, Via Natural or Artificial Opening (ICD-10-PCS; 2016-11-30)
PROC: 10907ZC Drainage of Amniotic Fluid, Therapeutic from Products of Conception, Via Natural or Artificial Opening (ICD-10-PCS; 2016-11-30)
PROC: 3E033VJ Introduction of Other Hormone into Peripheral Vein, Percutaneous Approach (ICD-10-PCS; 2016-11-30)
PROC: 10D00Z1 Extraction of Products of Conception, Low, Open Approach (ICD-10-PCS; principal; 2016-12-01 20:03)
DX: O13.4 Gestational [pregnancy-induced] hypertension without significant proteinuria, complicating childbirth (principal); O99.824 Streptococcus B carrier state complicating childbirth; O32.4XX0 Maternal care for high head at term, not applicable or unspecified; O14.94 Unspecified pre-eclampsia, complicating childbirth; O76 Abnormality in fetal heart rate and rhythm complicating labor and delivery; Z3A.38 38 weeks gestation of pregnancy; Z37.0 Single live birth

== ENCOUNTER 2016-12-03 23:33 | Emergency (ER) | payer OTHER ==
[~2016-12-03] VITALS: Ht 167.6 cm; Wt 127.7 kg
[~2016-12-03 23:33] MED LIST: DOCU-41 PO; FERR-74 PO; IBUP-1827 PO; OXYC1TAB24 PO
[2016-12-03 23:38] VITALS: BP 132/87; PULSE 101; RESP 18; O2SAT 99
--- NOTE | 2016-12-03 23:44 | ED.REPORT ---
HPI-General Illness Date of Service Dec 03, 2016 ED Provider: Tone Anne DO Pt is a 26 year old female with a history of recent (12/01/16) who presents to the ED complaining of SOB onset 2 days ago. She c/o associated post- surgical pain. She denies nausea, vomiting, diarrhea, cold symptoms, flu symptoms, and any other symptoms. Pt reports difficulty breathing when walking, and that her symptoms are relieved at rest. She states that she called her PCP and she was referred to the ED for further evaluation. 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 Complaint: Respiratory Complaints Nursing Notes Reviewed: Yes Allergies: Coded Allergies: No Known Allergies (Unverified , 06/17/15) Scheduled Docusate Sodium (Colace) 100 Mg Capsule 100 MG PO BID Ferrous Sulfate (Feosol) 325 Mg Tablet 325 MG PO BIDWM Scheduled PRN Ibuprofen (Ibuprofen) 600 Mg Tablet 600 MG PO QID PRN PRN For Pain oxyCODONE-Acetaminophen 5-325 mg (oxyCODONE-Acetaminophen 5-325 mg) 1 Each Tablet 1-2 TAB PO Q8H PRN PRN For Pain General Time Seen by MD: 23:44 Chief Complaint Other (Shortness of breath) Hx Obtained From: Patient Arrived By: Walk-in Sudden in Onset?: No Onset Occurred: 2 days ago Symptom Duration: Since onset Location: : Abdomen Quality: Painful Radiation: : Does not radiate Severity: Current: Moderate Severity: Maximum: Moderate Recent Healthcare: Recent doctor visit Similar Sx Previous: No Past Medical History Past Medical History none reported Past Surgical History Reports: Smoking History Never Smoker Social History none reported Alcohol Use: Denies alcohol use Drug Use: Denies drug use Other Social History: Good social support, Lives with children Ambulatory Status Independent Review of Systems Full Review of Systems Constitutional: Denies: Chills, Fever Respiratory: Reports: Dyspnea on exertion, Shortness of breath, Denies: Non-productive cough GI: Reports: Abdominal pain, Denies: Diarrhea, Nausea, Vomiting Allergy / Immune: Denies: Rhinorrhea Complete sys rev & neg: except as marked. Physical Exam Vital Signs Vital Signs Date Time Temp Pulse Resp B/P Pulse Ox O2 Delivery O2 Flow Rate FiO2 12/03/16 23:38 37.2 101 18 132/87 99 Room Air Initial VS: Reviewed Head / Eyes: Atraumatic, Normocephalic Neck: Supple, Full range of motion Cardiovascular: Regular rate & rhythm, Heart sounds normal, Intact distal pulses Extremities: Vascular intact, Neuro intact Skin: Warm, Dry, No cyanosis Neurologic: Alert, Oriented, Nonfocal Psychiatric: Mood/affect normal, Behavior normal General/Constitutional: Awake, Alert Respiratory / Chest: Atraumatic, Breath sounds = bilat Mildly dypsneic Abdomen: Soft Her wound looks good Interpretation & Diagnostics CT ANGIOGRAM CHEST: Impression: No acute occlusive PE: No pulmonary consolidation or mass. Other findings above. Transmitted to the ED at 01:38 by Francisca Castro M.D. Lab Results Interpretation Result Diagram: 12/03/16 00012/03/167 Test 12/03/16 00:07 12/04/16 00:07 White Blood Count 10.9th/mm3 (3.8-10.1) Red Blood Count 3.47mil/mm3 (3.90-5.20) Hemoglobin 9.2g/dL (12.0-15.6) Hematocrit 28.4% (35.0-46.0) Mean Corpuscular Volume 81.8fL (81-100) Mean Corpuscular Hemoglobin 26.5pg (27.0-35.0) Mean Corpuscular Hemoglobin Concent 32.4% (32.0-37.0) Red Cell Distribution Width 14.4% (12.3-15.4) Platelet Count 274bil/L (150-400) Neutrophils (%) (Auto) 73.0% (40-74) Lymphocytes (%) (Auto) 18.1% (14-46) Monocytes (%) (Auto) 5.8% (4-12) Eosinophils (%) (Auto) 1.6% (0-5) Basophils (%) (Auto) 0.2% (0-3) Sodium Level 141mEq/L (134-144) Potassium Level 4.1mEq/L (3.5-5.2) Chloride Level 101mEq/L (97-108) Carbon Dioxide Level 24mmol/L (18-29) Blood Urea Nitrogen 11mg/dL (6-20) Creatinine 0.76mg/dL (0.57-1.00) Estimat Glomerular Filtration Rate 130mL/min (>59) Glucose Level 114mg/dL (60-99) Calcium Level 9.1mg/dL (8.5-10.1) Total Bilirubin 0.2mg/dL (0.0-1.2) Aspartate Amino Transf (AST/SGOT) 36U/L (0-50) Alanine Aminotransferase (ALT/SGPT) 44U/L (0-32) Alkaline Phosphatase 123U/L (25-150) Troponin T 0.010ug/L (0.0-0.011) Pro-B-Type Natriuretic Peptide 26.69pg/mL (0-130) Total Protein 6.7g/dL (6.4-8.4) Albumin 3.0g/dL (3.4-5.0) Hold Allen Top Tube Received (Received) ECG Interpretation ECG Interpretation: Sinus rhythm with a rate of 92 Time: 00:34 Interpreted by: ED physician Re-Eval/Medical Decision Med Decision/Clinical Course Pulmonary embolism, myocardial infarction and congestive heart failure ruled out as a cause of her postoperative pain and dyspnea. She is moderately anemic. This with a deconditioning is most likely cause of her exertional dyspnea. She is going to continue her multivitamin with iron to help build up her red blood cell mass. She will continue to exercise for aerobic fitness. 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 Source of Hx: Old records Time of Eval: 01:51 Re-Evaluation/Progress Note: Pt rechecked. Informed pt of plan for discharge. Pt understands and agrees with plan for discharge. F/U instructions and RTER warnings given. All questions addressed. Counseled Regarding: Diagnosis, Lab results, Need for follow-up, When/why to return to ED Discharge & Departure Primary Impression: Dyspnea Dyspnea type: dyspnea on exertion Qualified Code: R06.09 - Other forms of dyspnea Additional Impression: Anemia Anemia type: iron deficiency Iron deficiency anemia type: unspecified iron deficiency Qualified Code: D50.9 - Iron deficiency anemia, unspecified Disposition: Home Discharge Condition All VS Reviewed: Yes Condition: Stable Patient Instructions: Acute Posthemorrhagic Anemia (DC), Anemia (ED), Dyspnea ( ED) Additional Instructions: Keep your postoperative/obstetric follow-up. The CAT scan did not show evidence of a blood clot. You did not have any signs of congestive heart failure or a heart attack. No signs of pneumonia. You do have moderate anemia and I expect that this is contributing to your dyspnea on exertion symptoms. Continue with the vitamins with iron. Increase your exercise capacity daily. Follow up as instructed. Return if any problems or any new or worrisome symptoms. Referrals: [facility] (PCP) Neymaribe Attestation Portions of this note were transcribed by Makayla Manzanares. I, Dr. Anne personally performed the history, physical exam and medical decision-making; I reviewed and confirmed the accuracy of the information in the transcribed note. Signed by : Madelaine Garvey, 12/03/16. copies to: [facility] TH[facility] Todd P DO Dec 03, 2016 23:44 Makayla Alvarez Dec 03, 2016 23:52
[2016-12-04 00:20] LABS: BASOPHILS % (AUTO) 0.2 % (0-3); EOSINOPHILS % (AUTO) 1.6 % (0-5); MONOCYTES % (AUTO) 5.8 % (4-12); Mean Corpuscular Hemoglobin 26.5 pg (27.0-35.0); Mean Corpuscular Volume 81.8 fL (81-100); Platelet Count 274 bil/L (150-400)
[2016-12-04 01:00] LABS: TROPONIN T 0.01 ug/L (0.0-0.011)
[2016-12-04 02:21] VITALS: BP 119/77; PULSE 91; RESP 21; O2SAT 99
--- NOTE | 2016-12-04 09:28 | DRSVH ---
PROCEDURE: CT ANGIO CHEST PULMONARY EMBOLISM ([id number]) INDICATIONS: Post operative chest pain and shortness of breath. TECHNIQUE: After the administration of intravenous contrast, 2 mm thick sections acquired from the pulmonary api verónica to the posterior costophrenic angles. 3-dimensional maximum intensity projection (MIP) coronal a nd sagittal reformats were then acquired through the thorax. For radiation dose reduction, the follo wing was used: automated exposure control, adjustment of mA and/or kV according to patient size. COMPARISON: None. FINDINGS: Image quality: There is minimal motion artifact. Pulmonary arteries: Pulmonary arteries are normal in size, and demonstrate no intraluminal filling d efects to suggest central pulmonary embolism. Evaluation of distal subsegmental branches is limited due to motion artifact. Lungs and pleura: There is minimal dependent atelectasis. No focal consolidation. No pleural effusi ons or pneumothorax. Central and peripheral airways are patent. Mediastinum: Heart size is prominent in size, without pericardial effusion. No mediastinal or hilar adenopathy. Thoracic aorta is normal in caliber and enhancement. Esophagus is normal in caliber, w ithout hiatal hernia. Bones and chest wall: No suspicious bony lesions. Ribs and thoracic spine appear intact throughout. Thyroid gland is partially visualized without discrete nodules identified. No axillary or supracla vicular adenopathy. Abdomen: Visualized upper abdomen demonstrates thyromegaly, measuring up to 16.2 cm as well as promi nent size of the visualized liver. Findings likely related to patient's recent . IMPRESSION: 1. No evidence of central pulmonary embolism. 2. Enlargement of the spleen and visualized liver as well as prominent heart size likely related to patient's recent . Dictated by: Kuldip Culp M.D. on 12/04/2016 at 9:23 Approved by: Kuldip Culp M.D. on 12/04/2016 at 9:27
== END 2016-12-04 02:19 | disposition home or self-care (01) ==
LOC: SED 23:33
DX: R06.00 Dyspnea, unspecified (principal); D50.9 Iron deficiency anemia, unspecified
CPT/HCPCS: 36415; 71275; 80053; 83880; 84484; 85025; 93005; 99284; Q9967